=== PATIENT | female | born 1950 | race Caucasian/White ===

== ENCOUNTER 2016-10-07 09:45 | Outpatient (CLI) | payer MEDICARE, OTHER | END 2016-10-07 09:46 | disposition home or self-care (01) | DX: Z12.31 Encounter for screening mammogram for malignant neoplasm of breast (principal) ==

== ENCOUNTER 2017-01-06 08:00 | Outpatient (CLI) | payer MEDICARE, OTHER ==
[2017-01-06 21:03] LABS: CREATININE 0.8 mg/dL (0.4-1.0)
== END 2017-01-06 08:01 | disposition home or self-care (01) ==
LOC: LAB.WCP 08:00
PROVIDERS: ATTEND Orthopaedic Surgery
DX: Z01.812 Encounter for preprocedural laboratory examination (principal)
CPT/HCPCS: 36415; 82565; 84520

== ENCOUNTER 2017-02-04 12:22 | Outpatient (CLI) | payer MEDICARE, OTHER ==
[2017-02-04 12:45] LABS: BASOPHILS % (AUTO) 0.9 %; EOSINOPHILS # (AUTO) 0.2 10^3/uL (0.0-0.7); EOSINOPHILS % (AUTO) 4.8 %; HCT - HEMATOCRIT 34.6 % (37.0-47.0); HGB - HEMOGLOBIN 11.6 g/dL (12.0-16.0); LYMPHOCYTES # (AUTO) 1.6 10^3/uL (1.5-3.5); LYMPHOCYTES % (AUTO) 40.3 %; MEAN CORPUSCULAR HEMOGLOBIN 31.7 pg (27.0-31.0); MEAN CORPUSCULAR HGB CONC 33.6 g/dL (32.0-36.0); MEAN CORPUSCULAR VOLUME 94.1 fL (81.0-99.0); MEAN PLATELET VOLUME 8.2 fL (7.9-10.8); MONOCYTES # (AUTO) 0.4 10^3/uL (0.0-1.0); MONOCYTES % (AUTO) 9.5 %; NEUTROPHILS # (AUTO) 1.7 10^3/uL (1.5-6.6); NEUTROPHILS % (AUTO) 44.5 %; NUCLEATED RED BLOOD CELLS AUTO 0.1 /100WBC; RED BLOOD COUNT 3.67 10^6/uL (4.20-5.40); RED CELL DISTRIBUTION WIDTH 13.9 % (12.0-15.0); UNCORRECTED WHITE BLOOD COUNT 3.9 x10^3/uL; WHITE BLOOD COUNT 3.9 x10^3/uL (4.8-10.8)
[2017-02-04 13:08] LABS: ALBUMIN/GLOBULIN RATIO 1.9 (1.0-2.2); BILIRUBIN,TOTAL 0.8 mg/dL (0.2-1.0); BUN - BLOOD UREA NITROGEN 13 mg/dL (6-20); CALCIUM 9.2 mg/dL (8.5-10.3); CARBON DIOXIDE - CO2 26 mmol/L (21-32); CHLORIDE 105 mmol/L (101-111); CREATININE 0.8 mg/dL (0.4-1.0); GFR - MDRD 72 (>89); GLUCOSE 92 mg/dL (70-100); POTASSIUM 3.6 mmol/L (3.5-5.0); SODIUM 139 mmol/L (135-145); TOTAL PROTEIN 6.7 g/dL (6.7-8.2)
== END 2017-02-04 12:23 | disposition home or self-care (01) ==
LOC: LAB 12:22
PROVIDERS: ATTEND Family Medicine
DX: I10 Essential (primary) hypertension (principal); R41.3 Other amnesia; F32.9 Major depressive disorder, single episode, unspecified; R35.0 Frequency of micturition
CPT/HCPCS: 36415; 80053; 84443; 85025

== ENCOUNTER 2017-02-26 11:25 | Outpatient (CLI) | payer MEDICARE, OTHER | END 2017-02-26 11:26 | disposition home or self-care (01) | LOC: LAB.WCP 11:25 | PROVIDERS: ATTEND Family Medicine | DX: Z11.59 Encounter for screening for other viral diseases (principal) | CPT/HCPCS: 36415; 86803 ==

== ENCOUNTER 2017-08-12 08:52 | Outpatient (CLI) | payer MEDICARE, OTHER ==
[2017-08-12] MEDS ORDERED: ALBUTEROL NEB 2.5 MG/3 ML INH ONE (11:00)
== END 2017-08-12 08:53 | disposition home or self-care (01) ==
LOC: RT 08:52
PROVIDERS: ATTEND Family Medicine
DX: J43.9 Emphysema, unspecified (principal)
CPT/HCPCS: 94060; 94729; J7613; 94664

== ENCOUNTER 2017-10-30 07:01 | Outpatient (CLI) | payer MEDICARE, OTHER ==
--- NOTE | 2017-11-04 13:18 | Mammography Report ---
DIGITAL SCREENING MAMMOGRAM: 10/30/2017 CLINICAL INDICATION: A 67-year-old for screening. COMPARISON: 09/2016, 09/2015, 07/2014, 01/2011. TECHNIQUE: Routine CC and MLO projections were obtained of the breasts. FINDINGS: The breasts again demonstrate scattered fibroglandular densities bilaterally. Coarse and punctate, typically benign calcifications are present. No suspicious masses, clustered microcalcifications, or regions of architectural distortion are identified. IMPRESSION: BENIGN FINDINGS. RECOMMENDATION: Routine annual screening unless otherwise clinically indicated. BI-RADS CATEGORY 2 - BENIGN FINDINGS. STANDARD QUALIFYING STATEMENTS: 1. This examination was reviewed with the aid of Computer-Aided Detection (CAD). 2. A negative or benign imaging report should not delay biopsy if clinically suspicious findings are present. Consider surgical consultation if warranted. More than 5% of cancers are not identified by imaging. 3. Dense breasts may obscure an underlying neoplasm. TD: 11/04/2017 12:55
== END 2017-10-30 07:02 | disposition home or self-care (01) ==
LOC: DI 07:01
PROVIDERS: ATTEND Family Medicine
DX: Z12.31 Encounter for screening mammogram for malignant neoplasm of breast (principal)
CPT/HCPCS: 77067

== ENCOUNTER 2018-08-07 10:57 | Outpatient (CLI) | payer MEDICARE, OTHER ==
[2018-08-07 19:13] LABS: BASOPHILS % (AUTO) 0.9 %; EOSINOPHILS # (AUTO) 0.1 10^3/uL (0.0-0.7); EOSINOPHILS % (AUTO) 3.2 %; HGB - HEMOGLOBIN 13.5 g/dL (12.0-16.0); LYMPHOCYTES # (AUTO) 1.1 10^3/uL (1.5-3.5); LYMPHOCYTES % (AUTO) 25.2 %; MEAN CORPUSCULAR HEMOGLOBIN 31.4 pg (27.0-31.0); MEAN CORPUSCULAR HGB CONC 32.6 g/dL (32.0-36.0); MEAN CORPUSCULAR VOLUME 96.3 fL (81.0-99.0); MEAN PLATELET VOLUME 9.6 fL (7.9-10.8); MONOCYTES # (AUTO) 0.4 10^3/uL (0.0-1.0); MONOCYTES % (AUTO) 8.6 %; NEUTROPHILS # (AUTO) 2.7 10^3/uL (1.5-6.6); NEUTROPHILS % (AUTO) 62.1 %; PLT - PLATELET COUNT 178 10^3/uL (130-450); RED BLOOD COUNT 4.29 10^6/uL (4.20-5.40); RED CELL DISTRIBUTION WIDTH 13.7 % (12.0-15.0); WHITE BLOOD COUNT 4.3 x10^3/uL (4.8-10.8)
[2018-08-07 20:03] LABS: ALBUMIN 4.4 g/dL (3.2-5.5); ALBUMIN/GLOBULIN RATIO 1.5 (1.0-2.2); ALKALINE PHOSPHATASE 49 IU/L (42-121); ALT ALANINE AMINOTRANSFERASE 22 IU/L (10-60); AST ASPARTATE AMINOTRANSFERASE 30 IU/L (10-42); BILIRUBIN,TOTAL 0.7 mg/dL (0.2-1.0); BUN - BLOOD UREA NITROGEN 25 mg/dL (6-20); CALCIUM 9.4 mg/dL (8.5-10.3); CARBON DIOXIDE - CO2 27 mmol/L (21-32); CHLORIDE 98 mmol/L (101-111); CHOL/HDL RATIO 2.5 (<4.4); CHOLESTEROL 161 mg/dL; CREATININE 0.8 mg/dL (0.4-1.0); GFR - MDRD 71 (>89); GLUCOSE 89 mg/dL (70-100); HDL CHOLESTEROL 65 mg/dL; SODIUM 140 mmol/L (135-145); TOTAL PROTEIN 7.3 g/dL (6.7-8.2)
[2018-08-07 20:46] LABS: LDL CHOLESTEROL,DIRECT 96 mg/dL; LDLD/HDL RATIO 1.5 (<4.4)
== END 2018-08-07 10:58 | disposition home or self-care (01) ==
LOC: LAB.WCP 10:57
PROVIDERS: ATTEND Physician Assistant
DX: I10 Essential (primary) hypertension (principal); Z13.220 Encounter for screening for lipoid disorders
CPT/HCPCS: 36415; 80053; 80061; 83721; 85025

== ENCOUNTER 2018-11-05 11:27 | Outpatient (CLI) | payer MEDICARE, OTHER ==
--- NOTE | 2018-11-05 12:37 | Mammography Report ---
Reason: SCREENING MAMMO Procedure Date: 11/05/2018 Accession Number: [id number] / [id number] Procedure: YAAKOV - Screening Mammo w/Michael CPT Code: FULL RESULT: EXAM: Screening Mammo w/Michael DATE: 11/05/2018 12:03 PM CLINICAL HISTORY: Routine screening. No reported personal or family history of breast cancer. TECHNIQUE: (B) - Bilateral CC and MLO views were obtained. COMPARISON: 10/30/2017 through 10/10/2015 PARENCHYMAL PATTERN: (A) - The breasts demonstrate scattered fibroglandular densities bilaterally. FINDINGS: Bilateral breasts: There are no suspicious masses, calcifications, or areas of distortion. IMPRESSION: Negative examination. BI-RADS category 1. RECOMMENDATION: (ANNUAL) - Recommend routine annual screening mammography. BI-RADS CATEGORY: (1) - Negative. STANDARD QUALIFYING STATEMENTS: 1. This examination was not reviewed with the aid of Computer-Aided Detection (CAD). 2. A negative or benign imaging report should not preclude biopsy if clinically suspicious findings are present. 3. Dense breasts may obscure an underlying neoplasm. 4. This examination was reviewed with the aid of 3D breast imaging (tomosynthesis).
== END 2018-11-05 11:28 | disposition home or self-care (01) ==
LOC: DI 11:27
DX: Z12.31 Encounter for screening mammogram for malignant neoplasm of breast (principal)
CPT/HCPCS: 77063; 77067

== ENCOUNTER 2018-12-31 10:19 | Outpatient (CLI) | payer MEDICARE, OTHER ==
--- NOTE | 2019-01-04 08:01 | DEXA Report ---
Reason: POSTMENOPAUSAL STATUS Procedure Date: 12/31/2018 Accession Number: [id number] / [id number] Procedure: DEX - Dexa Spine and/or Hip CPT Code: FULL RESULT: EXAM: Dexa Spine and/or Hip DATE: 12/31/2018 11:15 AM CLINICAL HISTORY: POSTMENOPAUSAL STATUS TECHNIQUE: Dual energy x-ray absorptiometry (DXA) was performed on a [employer] System. Regions measured are the AP Spine, femoral neck, and if needed forearm. COMPARISON: None. In accordance with the International Society for Clinical Densitometry (ISCD) guidelines, data from previous exams may be reanalyzed using current recommendations and techniques. This is done to allow a more accurate basis for comparison with the current study. FINDINGS: The data for the lumbar spine is as follows: BMD (g/cm/cm) T-SCORE Z-SCORE REGION L1 1.318 1.6 2.9 L2 1.400 1.7 3.0 L3 1.501 2.5 3.9 L4 1.765 4.7 6.1 TOTAL 1.539 3.0 4.4 NOTE: All evaluable vertebrae are used for classification The data for the hip is as follows: BMD (g/cm/cm) T-SCORE Z-SCORE REGION Neck 0.889 -1.1 0.4 TOTAL 0.964 -0.3 0.9 NOTE: The femoral neck or total proximal femur, whichever is lowest, is used for classification. IMPRESSION: THE WHO CLASSIFICATION BASED ON THE INTERNATIONAL REFERENCE STANDARD IS OSTEOPENIA. THE FRACTURE RISK IS INCREASED. RECOMMENDATION: Patients with diagnosis of osteoporosis or osteopenia should have regular bone mineral density assessment. For those eligible for Medicare, routine testing is allowed once every 2 years. Testing frequency can be increased for patients who have rapidly progressing disease or for those who are receiving medical therapy to restore bone mass. COMMENT: World Health Organization (WHO) definitions for osteoporosis and osteopenia: NORMAL BMD: T-score at -1.0 or higher, fracture risk is low OSTEOPENIA BMD: T-score between -1.0 and -2.5, fracture risk is increased. OSTEOPOROSIS BMD: T-score at -2.5 or lower, fracture risk is high. National Osteoporosis Foundation recommends: 1. Obtain adequate dietary calcium (at least 1200 mg per day) and vitamin D (400-800 international units per day). 2. Participate, as appropriate, in regular weightbearing and muscle-strengthening exercise. 3. Avoid tobacco use and reduce alcohol and caffeine intake. 4. For more detailed information see the website at www.NOF.org.
== END 2018-12-31 10:20 | disposition home or self-care (01) ==
LOC: DI 10:19
PROVIDERS: ATTEND Family Medicine
DX: M85.89 Other specified disorders of bone density and structure, multiple sites (principal); Z78.0 Asymptomatic menopausal state
CPT/HCPCS: 77080

== ENCOUNTER 2019-04-09 08:00 | Outpatient (CLI) | payer MEDICARE, OTHER ==
[2019-04-09 12:38] LABS: BASOPHILS # (AUTO) 0.1 10^3/uL (0.0-0.1); BASOPHILS % (AUTO) 1.2 %; EOSINOPHILS # (AUTO) 0.1 10^3/uL (0.0-0.7); EOSINOPHILS % (AUTO) 3.2 %; HGB - HEMOGLOBIN 12.8 g/dL (12.0-16.0); LYMPHOCYTES # (AUTO) 1.3 10^3/uL (1.5-3.5); LYMPHOCYTES % (AUTO) 29.3 %; MEAN CORPUSCULAR HEMOGLOBIN 31.7 pg (27.0-31.0); MEAN CORPUSCULAR HGB CONC 32.1 g/dL (32.0-36.0); MEAN CORPUSCULAR VOLUME 98.8 fL (81.0-99.0); MEAN PLATELET VOLUME 10.1 fL (7.9-10.8); MONOCYTES # (AUTO) 0.5 10^3/uL (0.0-1.0); MONOCYTES % (AUTO) 10.4 %; NEUTROPHILS # (AUTO) 2.4 10^3/uL (1.5-6.6); NEUTROPHILS % (AUTO) 55.7 %; PLT - PLATELET COUNT 214 10^3/uL (130-450); RED BLOOD COUNT 4.04 10^6/uL (4.20-5.40); RED CELL DISTRIBUTION WIDTH 13.5 % (12.0-15.0); WHITE BLOOD COUNT 4.3 x10^3/uL (4.8-10.8)
[2019-04-09 12:59] LABS: CRP - C-REACTIVE PROTEIN < 1.0 mg/dL (0-1.0)
[2019-04-09 13:17] LABS: RHEUMATOID FACTOR NEGATIVE (Negative)
[2019-04-13 21:45] LABS: ANA SCREEN NEGATIVE (NEGATIVE)
== END 2019-04-09 23:59 | disposition home or self-care (01) ==
LOC: LAB.WCP 08:00
PROVIDERS: ATTEND Orthopaedic Surgery
DX: D17.22 Benign lipomatous neoplasm of skin and subcutaneous tissue of left arm (principal); M25.532 Pain in left wrist
CPT/HCPCS: 36415; 84550; 85025; 85651; 86038; 86140; 86430

== ENCOUNTER 2019-08-06 07:53 | Outpatient (CLI) | payer MEDICARE, OTHER ==
--- NOTE | 2019-08-06 10:30 | MRI Report ---
Reason: LOW BACK PAIN Procedure Date: 08/06/2019 Accession Number: [id number] / [id number] Procedure: MRI - Lumbar Spine W/O CPT Code: Final Report FULL RESULT: EXAM: MRI LUMBAR SPINE WITHOUT CONTRAST EXAM DATE: 08/06/2019 08:40 AM. CLINICAL HISTORY: Low back pain. COMPARISON: None. TECHNIQUE: Multiplanar, multisequence T1-weighted and fluid-sensitive sequences of the lumbar spine from T12 to S1 without contrast. Other: None. FINDINGS: Spinal Canal: The conus terminates at L2. The conus medullaris and cauda equina are unremarkable. Alignment: Multiple subluxations. Bone Marrow: Five esl-daw-yreagml lumbar vertebral bodies are assumed. Diffuse marrow signal heterogeneity. Mild Modic type I degenerative endplate signal changes posteriorly at L4-L5. Lumbar vertebral body heights are grossly maintained. No evidence for a displaced pars defect. Disk Levels/Facets: T12-L1: Mild to moderate facet arthropathy. Negligible disk degeneration. No disk herniation or stenosis. L1-L2: 2 mm degenerative L1 on L2 retrolisthesis. Mild disk degeneration. Circumferential bulge and marginal spurring. Additional shallow right intraforaminal and far lateral disk protrusion with osteophyte. Mild facet arthropathy. Patent central canal and left foramen. Mild right foraminal stenosis. L2-L3: 1 mm L2 on L3 retrolisthesis. Minimal disk degeneration. Mild to moderate facet arthropathy. Shallow disk bulge but no focal extrusion or significant stenosis. L3-L4: Moderate disk degeneration. Vertebral body marginal spurring. Circumferential disk bulge. Shallow additional asymmetric right intraforaminal and far lateral disk protrusion. Moderate facet arthropathy. Minimal central canal stenosis. Mild left and mild to moderate right foraminal stenosis. L4-L5: 4 mm degenerative anterolisthesis of L4 on L5. Moderate disk degeneration. Moderate to severe facet arthropathy. Circumferential disk bulge. Marginal spurring. Mild stenosis of the central canal and left neural foramen. Foraminal stenosis on the right is mild to moderate. L5-S1: Degenerative anterolisthesis of L5 on S1 by 12 mm creating a grade 2 degenerative spondylolisthesis. Moderate to severe disk degeneration and facet arthropathy. Mild right and moderate to severe left foraminal stenosis. Mild central stenosis. Prominent deformity and narrowing also of the left lateral recess. Musculature: Mild to moderate diffuse fatty atrophy. Other: None. IMPRESSION: 1. Prominent chronic-appearing multilevel degenerative lumbar spinal spondylosis with degenerative subluxations throughout the lumbar spine as detailed above, most severe at L4-L5 and L5-S1 levels. 2. Moderate to severe foraminal stenosis on the left at L5-S1. 3. Prominent deformity and narrowing of the left lateral recess at L5-S1 from malalignment and posterior element hypertrophic degenerative changes. 4. No critical central canal stenosis in the lumbar spine. 5. Localized Modic type I degenerative endplate signal changes posteriorly at L4-L5. Comment: The following findings are so common in adults without low back pain that while we report their presence, they must be interpreted with caution and in the context of the clinical situation. (Reference Phillipvik et al, Spine 2001) Prevalence of findings in patients without low back pain: Disk degeneration (any evidence): 92% Disk desiccation/T2 signal loss: 83% Disk height loss: 56% Disk bulge: 64% Disk protrusion: 32% Annular tear/high intensity zone: 38% RADIA
== END 2019-08-06 07:54 | disposition home or self-care (01) ==
LOC: DI 07:53
PROVIDERS: ATTEND Physical Medicine & Rehabilitation
DX: M51.26 Other intervertebral disc displacement, lumbar region (principal); M51.36 Other intervertebral disc degeneration, lumbar region; M48.061 Spinal stenosis, lumbar region without neurogenic claudication; M47.816 Spondylosis without myelopathy or radiculopathy, lumbar region; M43.16 Spondylolisthesis, lumbar region; M43.17 Spondylolisthesis, lumbosacral region; M51.37 Other intervertebral disc degeneration, lumbosacral region; M48.07 Spinal stenosis, lumbosacral region
CPT/HCPCS: 72148

== ENCOUNTER 2019-11-14 07:37 | Outpatient (CLI) | payer MEDICARE, OTHER | END 2019-11-14 07:38 | disposition critical access hospital (66) | LOC: EMS 07:37 | PROVIDERS: ATTEND Surgery | DX: R52 Pain, unspecified (principal); R11.2 Nausea with vomiting, unspecified; R42 Dizziness and giddiness; R06.02 Shortness of breath | CPT/HCPCS: A0425; A0427 ==

== ENCOUNTER 2019-11-14 07:50 | Emergency (ER) | payer MEDICARE, OTHER ==
--- NOTE | 2019-11-14 07:54 | ED Physician Documentation ---
PD HPI SKIN - Stated complaint Stated Complaint: SHINGLES - History obtained from History obtained from: Patient PD PAST MEDICAL HISTORY - Past Medical History Cardiovascular: None Respiratory: None Endocrine/Autoimmune: None GI: None : None HEENT: Dental implants Psych: Depression Musculoskeletal: Osteoarthritis Derm: None - Past Surgical History Ortho: Hip replacement HEENT: Cataracts - Present Medications Home Medications: Ambulatory Orders Medication Instructions Recorded Confirmed Ascorbic Acid [Vitamin C] 500 mg PO DAILY 10/04/15 11/27/15 Biotin 10,000 mcg PO DAILY 10/04/15 11/27/15 Cholecalciferol (Vitamin D3) 1,000 unit PO DAILY 10/04/15 11/27/15 [Vitamin D] Multivitamin [Theragran] 1 each PO DAILY 10/04/15 11/27/15 Vitamin E 1 tab PO DAILY 10/04/15 11/27/15 Aspirin [Aspir-Low] 81 mg PO DAILY 11/24/15 11/27/15 Folic Acid 0.8 mg PO DAILY 11/27/15 11/27/15 Magnesium Oxide [Magnesium] 400 mg PO DAILY 11/27/15 11/27/15 Melatonin [Vitajoy] 2.5 mg PO ACHS 11/27/15 11/27/15 prednisoLONE 1% OPHTH DROPS [Pred 1 drops OPTH BID 11/27/15 11/27/15 Forte 1% Ophth Drops] - Allergies Allergies/Adverse Reactions: Allergies Allergy/AdvReac Type Severity Reaction Status Date / Time acetaminophen [From Percocet] AdvReac Dizziness Verified 11/27/15 08:18 oxycodone HCl * AdvReac Dizziness Verified 11/27/15 08:18 [From Percocet] - Social History Smoking Status: Never smoker Results - Vitals Vitals: Oxygen O2 Source Room air
[2019-11-14] MEDS ORDERED: diphenhydrAMINE INJ 50 MG/ML VIAL IVP STA (08:09)
[2019-11-14] MEDS ORDERED: SODIUM CHLORIDE 0.9% 1,000 ML IV STA (08:09)
[2019-11-14] MEDS ORDERED: ONDANSETRON 4 MG/2 ML VIAL IVP STA (08:09)
[2019-11-14] MEDS ORDERED: FAMOTIDINE 20 MG/2 ML SYRINGE IVP STA (08:10)
[2019-11-14] MEDS ORDERED: NALBUPHINE 10 MG/ML AMP IVP STA ×2 (08:10→11:29)
--- NOTE | 2019-11-14 08:11 | ED Physician Documentation ---
PD HPI NVD - Stated complaint Stated Complaint: SHINGLES - Chief complaint Chief Complaint: General - History obtained from History obtained from: Patient, EMS - History of Present Illness Timing - onset: Last night, Yesterday Timing - duration: Hours (12) Timing - details: Abrupt onset, Still present Associated symptoms: Abdominal pain, Loss of appetite. No: Fever, Chest pain, Hematemesis, Melena Contributing factors: Alcohol use, Other (NSAID use as well - has had shingles pain left lower chest/upper abd for 3 weeks, with prior Rx of antiviral and steroid for 1 week, and now using NSAIDs and tramadol. No improved so has been drinking heavily for 3 weeks as well, to help the pain. Onset vomiting yesterday. Having persistent symptoms and also with shakiness and tremor today too.). No: Sick contact, Bad food Improved by: No: Vomiting Worsened by: Eating Similar symptoms before: Has not had sx before Recently seen: Clinic (for shingles 3 weeks ago, rechecked teleconf a week ago and Rx Tramadol.) Review of Systems Constitutional: denies: Fever, Chills Nose: denies: Rhinorrhea / runny nose, Congestion Throat: denies: Sore throat Cardiac: reports: Chest pain / pressure (locally at shingles area). denies: Palpitations Respiratory: denies: Dyspnea, Cough GI: denies: Nausea, Vomiting, Diarrhea Skin: reports: Rash (for 3 weeks on left chest/abd) Musculoskeletal: denies: Neck pain, Back pain Neurologic: denies: Altered mental status PD PAST MEDICAL HISTORY - Past Medical History Cardiovascular: None Respiratory: None Endocrine/Autoimmune: None GI: None : None HEENT: Dental implants Psych: Depression Musculoskeletal: Osteoarthritis Derm: None - Past Surgical History Ortho: Hip replacement HEENT: Cataracts - Present Medications Home Medications: Ambulatory Orders Medication Instructions Recorded Confirmed Ascorbic Acid [Vitamin C] 500 mg PO DAILY 10/04/15 11/27/15 Biotin 10,000 mcg PO DAILY 10/04/15 11/27/15 Cholecalciferol (Vitamin D3) 1,000 unit PO DAILY 10/04/15 11/27/15 [Vitamin D] Multivitamin [Theragran] 1 each PO DAILY 10/04/15 11/27/15 Vitamin E 1 tab PO DAILY 10/04/15 11/27/15 Aspirin [Aspir-Low] 81 mg PO DAILY 11/24/15 11/27/15 Folic Acid 0.8 mg PO DAILY 11/27/15 11/27/15 Magnesium Oxide [Magnesium] 400 mg PO DAILY 11/27/15 11/27/15 Melatonin [Vitajoy] 2.5 mg PO ACHS 11/27/15 11/27/15 prednisoLONE 1% OPHTH DROPS [Pred 1 drops OPTH BID 11/27/15 11/27/15 Forte 1% Ophth Drops] Famotidine 20 mg PO DAILY #30 tablet 11/14/19 Hydrocodone/Acetaminophen [[place] 1 each PO Q6H PRN #20 tablet 11/14/19 5-325 Tablet] LORazepam [Ativan] 1 mg PO Q6H PRN #25 tablet 11/14/19 Promethazine [Phenergan] 25 mg PO Q6H PRN #20 tab 11/14/19 Valacyclovir HCl [Valacyclovir] 500 mg PO TID #20 tablet 11/14/19 dexAMETHasone [Decadron] 4 mg PO DAILY #5 tablet 11/14/19 - Allergies Allergies/Adverse Reactions: Allergies Allergy/AdvReac Type Severity Reaction Status Date / Time Iodinated Contrast Media Allergy Anaphylaxis Verified 11/14/19 09:09 acetaminophen [From Percocet] AdvReac Dizziness Verified 11/14/19 08:04 oxycodone HCl * AdvReac Dizziness Verified 11/14/19 08:04 [From Percocet] - Social History Smoking Status: Never smoker PD ED PE NORMAL - Vitals Vital signs reviewed: Yes - General General: Alert and oriented X 3, Well developed/nourished - HEENT HEENT: PERRL (nonicteric), Pharynx benign. No: Moist mucous membranes - Neck Neck: Supple, no meningeal sign, No adenopathy - Cardiac Cardiac: RRR, No murmur - Respiratory Respiratory: Clear bilaterally - Abdomen Abdomen: Normal bowel sounds, Soft, Non distended, No organomegaly, Other (some tender epigastric without guarding nor percussion tender. Not diffusely tender. ) - Back Back: No CVA TTP - Derm Derm: Normal color, Warm and dry, Other (partly dried up rash left lower chest around to back in a band c/w shingles without signs of secondary infection. Still some crusting and incompletely dried blistering.) - Extremities Extremities: No tenderness to palpate, Normal ROM s pain, No edema, No calf tenderness / cord - Neuro Neuro: Alert and oriented X 3, No motor deficit, Normal speech Results - Vitals Vitals: Oxygen O2 Source Room air - Labs Labs: Laboratory Tests 11/14/19 11/14/19 11/14/19 08:30 08:30 08:30 WBC 6.4 RBC 3.90 L Hgb 12.2 Hct 35.6 L MCV 91.3 MCH 31.3 H MCHC 34.3 RDW 14.2 Plt Count 168 MPV 9.1 Neut # (Auto) 5.5 Lymph # (Auto) 0.6 L [place] # (Auto) 0.3 Eos # (Auto) 0.0 Baso # (Auto) 0.0 Absolute Nucleated RBC 0.00 Nucleated RBC % 0.0 Sodium 131 L Potassium 3.8 Chloride 93 L Carbon Dioxide 24 Anion Gap 14.0 H BUN 19 Creatinine 0.6 Estimated GFR (MDRD) 99 Glucose 187 H Calcium 9.1 Magnesium 1.7 Total Bilirubin 1.0 AST 32 ALT 23 Alkaline Phosphatase 46 Troponin I High Sens Total Protein 7.7 Albumin 4.5 Globulin 3.2 Albumin/Globulin Ratio 1.4 Lipase 34 Ethyl Alcohol < 5.0 11/14/19 08:30 WBC RBC Hgb Hct MCV MCH MCHC RDW Plt Count MPV Neut # (Auto) Lymph # (Auto) [place] # (Auto) Eos # (Auto) Baso # (Auto) Absolute Nucleated RBC Nucleated RBC % Sodium Potassium Chloride Carbon Dioxide Anion Gap BUN Creatinine Estimated GFR (MDRD) Glucose Calcium Magnesium Total Bilirubin AST ALT Alkaline Phosphatase Troponin I High Sens 4.4 Total Protein Albumin Globulin Albumin/Globulin Ratio Lipase Ethyl Alcohol PD MEDICAL DECISION MAKING - ED course Complexity details: considered differential (likely alcoholic and NSAID gastritis with N/V and then some secondary alcohol withdrawal. Feeling better with meds here. Can change pain meds so she is not drinking alcohol for her pain. ), d/w patient Departure - Departure Disposition: 01 Home, Self Care Clinical Impression: Acute pain associated with herpes zoster Nausea and vomiting Qualifiers: Vomiting type: unspecified Vomiting Intractability: non-intractable Qualified Code(s): R11.2 - Nausea with vomiting, unspecified Alcohol withdrawal Qualifiers: Complication of substance-induced condition: uncomplicated Qualified Code(s): F10.230 - Alcohol dependence with withdrawal, uncomplicated Condition: Stable Record reviewed to determine appropriate education?: Yes Instructions: ED Nausea Vomiting, ED Shingles Follow-Up: LUCIA WATKINS MD [Primary Care Provider] - Prescriptions: dexAMETHasone [Decadron] 4 mg PO DAILY #5 tablet Famotidine 20 mg PO DAILY #30 tablet Hydrocodone/Acetaminophen [[place] 5-325 Tablet] 1 each PO Q6H PRN #20 tablet PRN Reason: Pain LORazepam [Ativan] 1 mg PO Q6H PRN #25 tablet PRN Reason: Alcohol Withdrawal Promethazine [Phenergan] 25 mg PO Q6H PRN #20 tab PRN Reason: Nausea / Vomiting Valacyclovir HCl [Valacyclovir] 500 mg PO TID #20 tablet Comments: I would suggest re-dosing a week of the antiviral as well as a steroid to reduce the shingles inflammation and pain. Avoid alcohol. I think some of your symptoms right now of the shakiness and some nausea related to some alcohol withdrawal. Do not use that for the pain but instead use Tylenol 500 or 650 mg 3 times a day. To that add [place] every 6 hours if needed for pain. Some of your nausea and vomiting also are likely from a stomach irritation from the anti-inflammatories ibuprofen and alcohol. Use famotidine acid reducing medicine daily for a couple of weeks. Lorazepam initially every 6 hours or so as needed for shakiness from a withdrawal. Decrease the dosing of it over several days to a week as you are able to tolerate. Follow-up with your primary care this coming week, call Friday for an appoint ment. Return to the ER sooner if worse. Discharge Date/Time: 11/14/19 12:58
[2019-11-14 08:32] LABS: BASOPHILS % (AUTO) 0.5 %; HGB - HEMOGLOBIN 12.2 g/dL (12.0-16.0); LYMPHOCYTES # (AUTO) 0.6 10^3/uL (1.5-3.5); LYMPHOCYTES % (AUTO) 9.7 %; MEAN CORPUSCULAR HEMOGLOBIN 31.3 pg (27.0-31.0); MEAN CORPUSCULAR HGB CONC 34.3 g/dL (32.0-36.0); MEAN CORPUSCULAR VOLUME 91.3 fL (81.0-99.0); MEAN PLATELET VOLUME 9.1 fL (7.9-10.8); MONOCYTES # (AUTO) 0.3 10^3/uL (0.0-1.0); MONOCYTES % (AUTO) 4.4 %; NEUTROPHILS # (AUTO) 5.5 10^3/uL (1.5-6.6); NEUTROPHILS % (AUTO) 85.1 %; PLT - PLATELET COUNT 168 10^3/uL (130-450); RED CELL DISTRIBUTION WIDTH 14.2 % (12.0-15.0); WHITE BLOOD COUNT 6.4 x10^3/uL (4.8-10.8)
[2019-11-14 08:46] LABS: ALBUMIN 4.5 g/dL (3.2-5.5); ALBUMIN/GLOBULIN RATIO 1.4 (1.0-2.2); CALCIUM 9.1 mg/dL (8.5-10.3); CREATININE 0.6 mg/dL (0.4-1.0); MAGNESIUM 1.7 mg/dL (1.7-2.8); TOTAL PROTEIN 7.7 g/dL (6.7-8.2)
[2019-11-14] MEDS ORDERED: MAG HYDROX/AL HYDROX/SIMETH 30 ML UDC PO STA (08:51)
[2019-11-14] MEDS ORDERED: LORazepam 2 MG/ML VIAL IVP STA ×2 (08:51→11:29)
[2019-11-14] MEDS ORDERED: LACTATED RINGERS 1,000 ML IV STA (09:29)
[2019-11-14] MEDS ORDERED: ACYCLOVIR 200 MG CAPSULE PO STA (10:49)
[2019-11-14] MEDS ORDERED: DEXAMETHASONE 10 MG/ML VIAL IVP STA (10:49)
[2019-11-14 11:02] VITALS: BP 172/86
== END 2019-11-14 12:58 | disposition home or self-care (01) ==
LOC: EDUNIT# → ED 07:50
DX: B02.9 Zoster without complications (principal); R11.2 Nausea with vomiting, unspecified; F10.230 Alcohol dependence with withdrawal, uncomplicated; I45.81 Long QT syndrome; Z79.82 Long term (current) use of aspirin
CPT/HCPCS: 36415; 80053; 83690; 83735; 84484; 85025; 93005; 96361; 96374; 96375; 96376; 99284; 99285; A9270; J1200; J2060; J2300; J7120; 80320

== ENCOUNTER 2019-12-21 10:12 | Outpatient (CLI) | payer MEDICARE, OTHER ==
[2019-12-21 11:58] LABS: BASOPHILS % (AUTO) 0.6 %; EOSINOPHILS # (AUTO) 0.3 10^3/uL (0.0-0.7); EOSINOPHILS % (AUTO) 5.2 %; HGB - HEMOGLOBIN 11.7 g/dL (12.0-16.0); LYMPHOCYTES # (AUTO) 1.6 10^3/uL (1.5-3.5); LYMPHOCYTES % (AUTO) 25.3 %; MEAN CORPUSCULAR HEMOGLOBIN 29.9 pg (27.0-31.0); MEAN CORPUSCULAR VOLUME 96.4 fL (81.0-99.0); MEAN PLATELET VOLUME 11.1 fL (7.9-10.8); MONOCYTES # (AUTO) 0.6 10^3/uL (0.0-1.0); MONOCYTES % (AUTO) 9.1 %; NEUTROPHILS # (AUTO) 3.8 10^3/uL (1.5-6.6); NEUTROPHILS % (AUTO) 59.5 %; PLT - PLATELET COUNT 234 10^3/uL (130-450); RED BLOOD COUNT 3.91 10^6/uL (4.20-5.40); RED CELL DISTRIBUTION WIDTH 14.9 % (12.0-15.0); WHITE BLOOD COUNT 6.4 x10^3/uL (4.8-10.8)
[2019-12-21 12:18] LABS: ALBUMIN 4.2 g/dL (3.2-5.5); ALBUMIN/GLOBULIN RATIO 1.8 (1.0-2.2); BILIRUBIN,TOTAL 0.5 mg/dL (0.2-1.0); CREATININE 0.8 mg/dL (0.4-1.0); TOTAL PROTEIN 6.5 g/dL (6.7-8.2)
== END 2019-12-21 23:59 | disposition home or self-care (01) ==
LOC: LAB.WCP 10:12
PROVIDERS: ATTEND Nurse Practitioner
DX: R10.12 Left upper quadrant pain (principal); K29.70 Gastritis, unspecified, without bleeding
CPT/HCPCS: 36415; 80053; 85025

== ENCOUNTER 2019-12-28 09:47 | Outpatient (CLI) | payer MEDICARE, OTHER ==
--- NOTE | 2019-12-28 12:15 | CT Report ---
PROCEDURE: Abdomen/Pelvis WO INDICATIONS: ABD PAIN TECHNIQUE: Noncontrast 5 mm thick sections acquired from the diaphragms to the symphysis. 5 mm coronal and sagi ttal reformats were then performed. For radiation dose reduction, the following was used: automated exposure control, adjustment of mA and/or kV according to patient size. COMPARISON: None. FINDINGS: Image quality: Excellent. ABDOMEN: Lung bases: Lung bases are clear. Heart size is normal. Solid organs: Liver and spleen are normal in size. Gallbladder is normal in size. Pancreas is norm al in contours. No adrenal nodules. Kidneys are normal in size, without hydronephrosis or nephrolit hiasis. Peritoneum and bowel: Unenhanced bowel loops demonstrate normal wall thickness and caliber. No free fluid or air. Nodes and vessels: No retroperitoneal or mesenteric adenopathy by size criteria. Aorta and inferior vena cava are normal in caliber. A few scattered atherosclerotic calcifications are seen in the abd ominal aorta. Miscellaneous: No ventral hernias. PELVIS: Genitourinary: Bladder wall thickness is normal. Miscellaneous: No inguinal hernias or adenopathy. Bones: No suspicious bony lesions. No vertebral body compression fractures. Multilevel degenerativ e disc disease and facet hypertrophy are seen in the lower lumbar spine. There is grade 1 anterolisth esis of L4 on L5 and L5 on S1 secondary to facet hypertrophy. Mild degenerative changes are seen in t he pubic symphysis. Postsurgical changes are seen from a left total hip arthroplasty with associated metallic streak artifact that mildly compromises evaluation of the adjacent structures. IMPRESSION: 1. No acute abnormality is identified in the abdomen or pelvis. 2. Postsurgical changes from a left total hip arthroplasty. 3. Moderate degenerative changes in the included lower lumbar spine including grade 1 anterolisthesi s of L4 on L5 and grade 1 anterolisthesis of L5 on S1. Reviewed by: Morro Beal MD on 12/28/2019 12:13 PM PDT Approved by: Morro Beal MD on 12/28/2019 12:13 PM PDT Station ID: [id number]
== END 2019-12-28 09:48 | disposition home or self-care (01) ==
LOC: DI 09:47
PROVIDERS: ATTEND Nurse Practitioner
DX: R10.12 Left upper quadrant pain (principal); M51.36 Other intervertebral disc degeneration, lumbar region; Z96.642 Presence of left artificial hip joint
CPT/HCPCS: 74176

== ENCOUNTER 2020-10-30 08:21 | Outpatient (CLI) | payer MEDICARE, OTHER ==
--- NOTE | 2020-10-30 12:33 | CT Report ---
PROCEDURE: CHEST WO INDICATIONS: LT SIDE RIB PAIN TECHNIQUE: Noncontrast 5 mm thick sections acquired from the pulmonary apices to the posterior costophrenic angl es. 7 mm thick coronal and sagittal MIP reformats were then acquired. For radiation dose reduction, the following was used: automated exposure control, adjustment of mA and/or kV according to patient size. COMPARISON: Prior CT abdomen/pelvis 12/28/2019 FINDINGS: Image quality: Excellent. Lungs and pleura: No acute air space opacities. No pleural effusions or pneumothorax. Central and peripheral airways are patent and normal in caliber. Mediastinum: Heart size is normal. No pericardial effusion. No mediastinal adenopathy by size crit eria. Thoracic aorta and central pulmonary arteries are normal in size. Esophagus is normal in uriel anette. No hiatal hernia. Bones and chest wall: No suspicious bony lesions. No vertebral body compression fractures. No axil janes or supraclavicular adenopathy by size criteria. The thyroid is normal in size. Abdomen: Visualized upper abdominal solid organs and bowel loops appear normal in the absence of con trast. IMPRESSION: No trauma found, no evidence of infection or neoplasm. Depending on the clinical status follow-up by nuclear medicine bone scan may be warranted if unusual symptomatology persists. Reviewed by: Juan Robles MD on 10/30/2020 12:32 PM PDT Approved by: Juan Robles MD on 10/30/2020 12:32 PM PDT Station ID: [id number]
== END 2020-10-30 08:22 | disposition home or self-care (01) ==
LOC: DI 08:21
PROVIDERS: ATTEND Family Medicine
DX: R07.81 Pleurodynia (principal)

== ENCOUNTER 2021-02-05 09:43 | Outpatient (CLI) | payer MEDICARE, OTHER ==
--- NOTE | 2021-02-06 14:34 | Mammography Report ---
BILATERAL DIGITAL SCREENING MAMMOGRAM 3D/2D: 02/05/2021 CLINICAL: Routine screening. Comparison is made to exams dated: 11/05/2018 mammogram, 10/30/2017 mammogram, 10/07/2016 mammogram, mammogram, 10/10/2015 mammogram, and 08/05/2014 mammogram - Located within [facility]. Ther e are scattered fibroglandular elements in both breasts. There are benign vascular calcifications in both breasts. No significant masses, calcifications, or other findings are seen in either breast. There has been no significant interval change. IMPRESSION: BENIGN There is no mammographic evidence of malignancy. A 1 year screening mammogram is recommended. This exam was interpreted at Station ID: [id number]. NOTE: For mammograms, a report in lay terms will be sent to the patient. Approximately 15% of breast malignancies will not be visualized mammographically. In the management of a palpable breast mass, a negative mammogram must not discourage biopsy of a clinically suspicious lesion. Electronically Signed By: Bennett perez/penlong:02/05/2021 11:47:21 ACR BI-RADS Category 2: Benign Finding(s) 3342F PARENCHYMAL PATTERN: (A) - The breast(s) demonstrate(s) scattered fibroglandular densities. BI-RADS CATEGORY: (2) - 2 RECOMMENDATION: (ANNUAL) - Recommend routine annual screening mammography. [id number] 1 year screening LATERALITY: (B)
== END 2021-02-05 09:44 | disposition home or self-care (01) ==
LOC: DI 09:43
DX: Z12.31 Encounter for screening mammogram for malignant neoplasm of breast (principal)

== ENCOUNTER 2021-05-14 09:06 | Outpatient (CLI) | payer MEDICARE, OTHER ==
[2021-05-14 12:44] LABS: BASOPHILS # (AUTO) 0.1 10^3/uL (0.0-0.1); EOSINOPHILS # (AUTO) 0.3 10^3/uL (0.0-0.7); EOSINOPHILS % (AUTO) 6.3 %; HCT - HEMATOCRIT 39.8 % (37.0-47.0); HGB - HEMOGLOBIN 12.6 g/dL (12.0-16.0); LYMPHOCYTES # (AUTO) 1.3 10^3/uL (1.5-3.5); LYMPHOCYTES % (AUTO) 26.8 %; MEAN CORPUSCULAR HEMOGLOBIN 30.7 pg (27.0-31.0); MEAN CORPUSCULAR HGB CONC 31.7 g/dL (32.0-36.0); MEAN CORPUSCULAR VOLUME 97.1 fL (81.0-99.0); MEAN PLATELET VOLUME 11.1 fL (7.9-10.8); MONOCYTES # (AUTO) 0.5 10^3/uL (0.0-1.0); MONOCYTES % (AUTO) 9.1 %; NEUTROPHILS # (AUTO) 2.8 10^3/uL (1.5-6.6); NEUTROPHILS % (AUTO) 56.6 %; PLT - PLATELET COUNT 212 10^3/uL (130-450); RED CELL DISTRIBUTION WIDTH 13.2 % (12.0-15.0); WHITE BLOOD COUNT 4.9 x10^3/uL (4.8-10.8)
[2021-05-14 13:17] LABS: ALBUMIN 4.5 g/dL (3.2-5.5); ALBUMIN/GLOBULIN RATIO 1.7 (1.0-2.2); CALCIUM 9.6 mg/dL (8.5-10.3); CREATININE 0.9 mg/dL (0.4-1.0); POTASSIUM 4.2 mmol/L (3.5-5.0); TOTAL PROTEIN 7.1 g/dL (6.7-8.2)
[2021-05-14 13:23] LABS: FERRITIN 75.5 ng/mL (11.0-306.8)
== END 2021-05-14 23:59 | disposition home or self-care (01) ==
LOC: LAB.WCP 09:06
PROVIDERS: ATTEND Family Medicine
DX: D64.9 Anemia, unspecified (principal)
CPT/HCPCS: 36415; 80053; 82607; 82728; 83540; 84466; 85025

== ENCOUNTER 2021-11-14 16:30 | Outpatient (CLI) | payer MEDICARE, OTHER ==
--- NOTE | 2021-11-14 16:55 | XRAY Report ---
PROCEDURE: Shoulder 2 View LT INDICATIONS: SHOULDER PAIN, LEFT TECHNIQUE: 2 views of the shoulder were acquired. COMPARISON: None. FINDINGS: Bones: No fractures or dislocations. No suspicious bony lesions. Visualized ribs appear intact. P eriarticular osteophyte formation at the acromial clavicular and glenohumeral joints. Soft tissues: No suspicious soft tissue calcifications. IMPRESSION: Osteoarthritis. No acute fracture. No osseous lesion. If symptoms and/or clinical suspic ion for pathology continue, further assessment with repeat plain films, or advanced imaging (e.g., CT , MRI, or bone scan) is recommended for further assessment. Reviewed by: Rishi Dougherty MD on 11/14/2021 4:54 PM PDT Approved by: Rishi Dougherty MD on 11/14/2021 4:54 PM PDT Station ID: [id number]
== END 2021-11-14 16:31 | disposition home or self-care (01) ==
LOC: DI 16:30
PROVIDERS: ATTEND Family Medicine
DX: M19.012 Primary osteoarthritis, left shoulder (principal)

== ENCOUNTER 2022-06-28 13:15 | Outpatient (CLI) | payer MEDICARE, OTHER ==
[2022-06-28 13:29] LABS: BASOPHILS % (AUTO) 0.8 %; EOSINOPHILS # (AUTO) 0.2 10^3/uL (0.0-0.7); EOSINOPHILS % (AUTO) 3.6 %; HCT - HEMATOCRIT 38.5 % (37.0-47.0); HGB - HEMOGLOBIN 12.5 g/dL (12.0-16.0); LYMPHOCYTES # (AUTO) 1.7 10^3/uL (1.5-3.5); LYMPHOCYTES % (AUTO) 31.9 %; MEAN CORPUSCULAR HEMOGLOBIN 30.2 pg (27.0-31.0); MEAN CORPUSCULAR HGB CONC 32.5 g/dL (32.0-36.0); MEAN PLATELET VOLUME 9.5 fL (7.9-10.8); MONOCYTES # (AUTO) 0.5 10^3/uL (0.0-1.0); MONOCYTES % (AUTO) 8.6 %; NEUTROPHILS # (AUTO) 2.9 10^3/uL (1.5-6.6); NEUTROPHILS % (AUTO) 54.9 %; PLT - PLATELET COUNT 177 10^3/uL (130-450); RED BLOOD COUNT 4.14 10^6/uL (4.20-5.40); RED CELL DISTRIBUTION WIDTH 13.2 % (12.0-15.0); WHITE BLOOD COUNT 5.3 x10^3/uL (4.8-10.8)
[2022-06-28 13:35] LABS: BILIRUBIN,URINE NEGATIVE (NEGATIVE); GLUCOSE, URINE (UA) NEGATIVE (NEGATIVE); KETONES,URINE (UA) NEGATIVE (NEGATIVE); LEUKOCYTE ESTERASE, URINE NEGATIVE (NEGATIVE); NITRITE,URINE NEGATIVE (NEGATIVE); OCCULT BLOOD,URINE NEGATIVE (NEGATIVE); PROTEIN,URINE NEGATIVE (NEGATIVE); UROBILINOGEN,URINE 0.2 (NORMAL) E.U./dL (NORMAL)
[2022-06-28 13:43] LABS: ALBUMIN 4.5 g/dL (3.2-5.5); ALBUMIN/GLOBULIN RATIO 1.7 (1.0-2.2); BILIRUBIN,TOTAL 0.7 mg/dL (0.2-1.0); CALCIUM 9.6 mg/dL (8.5-10.3); POTASSIUM 3.9 mmol/L (3.5-5.0); TOTAL PROTEIN 7.2 g/dL (6.7-8.2)
[2022-06-28 13:45] LABS: AMORPHOUS SEDIMENT,UR Marked /LPF; BACTERIA,URINE None Seen /HPF (None Seen); CLARITY,URINE SL. CLOUDY (CLEAR); MUCUS,URINE Few Strands; RBC,URINE None Seen /HPF (0-5); SQUAMOUS EPITHELIAL CELL,UR NONE SEEN (<= Few); WBC,URINE 0-3 /HPF (0-5)
== END 2022-06-28 13:16 | disposition home or self-care (01) ==
LOC: LAB 13:15
PROVIDERS: ATTEND Nurse Practitioner Family
DX: R10.12 Left upper quadrant pain (principal)
CPT/HCPCS: 36415; 80053; 81001; 82150; 83690; 85025; 87086

== ENCOUNTER 2022-07-03 19:56 | Outpatient (CLI) | payer MEDICARE, OTHER ==
--- NOTE | 2022-07-04 17:44 | Ultrasound Report ---
PROCEDURE: Abdomen Complete INDICATIONS: ABD PAIN TECHNIQUE: Real-time scanning was performed of the abdominal and retroperitoneal organs, with image documentatio n. COMPARISON: None. FINDINGS: Liver: Liver is normal in size and homogeneous in echotexture. Gallbladder: No stones. Wall thickness is normal measuring 2.2 mm. Biliary ducts: Intrahepatic bile ducts are non-dilated. Extrahepatic bile duct caliber measures 5.9 mm. Normal is 6-7 mm or less in diameter, or 10 mm or less post-cholecystectomy. Pancreas: Visualized portions of the pancreas are sonographically normal. Spleen: Spleen is normal in size and homogeneous in echotexture. Kidneys: Kidneys are normal in size and echotexture. Right kidney measures 10.9 cm long; left kidne y measures 11 cm long. No hydronephrosis or nephrolithiasis. No solid masses. Aorta: Visualized aorta is normal in caliber at less than 3 cm. Iliacs: Proximal common iliac arteries are normal in caliber at less than 2.5 cm. IVC: Intrahepatic inferior vena cava is patent. Miscellaneous: No free abdominal fluid. IMPRESSION: Unremarkable exam. Reviewed by: Margot Rae MD on 07/04/2022 5:42 PM PST Approved by: Margot Rae MD on 07/04/2022 5:42 PM PST Station ID: [id number]
== END 2022-07-03 19:57 | disposition home or self-care (01) ==
LOC: DI 19:56
PROVIDERS: ATTEND Nurse Practitioner Family
DX: R10.12 Left upper quadrant pain (principal)

== ENCOUNTER 2022-07-25 16:18 | Outpatient (CLI) | payer MEDICARE, OTHER ==
[2022-07-25 16:47] LABS: BASOPHILS # (AUTO) 0.1 10^3/uL (0.0-0.1); BASOPHILS % (AUTO) 0.8 %; EOSINOPHILS # (AUTO) 0.3 10^3/uL (0.0-0.7); LYMPHOCYTES # (AUTO) 2.3 10^3/uL (1.5-3.5); LYMPHOCYTES % (AUTO) 36.5 %; MEAN CORPUSCULAR HEMOGLOBIN 29.7 pg (27.0-31.0); MEAN CORPUSCULAR HGB CONC 31.7 g/dL (32.0-36.0); MEAN CORPUSCULAR VOLUME 93.6 fL (81.0-99.0); MEAN PLATELET VOLUME 10.6 fL (7.9-10.8); MONOCYTES # (AUTO) 0.4 10^3/uL (0.0-1.0); NEUTROPHILS # (AUTO) 3.2 10^3/uL (1.5-6.6); NEUTROPHILS % (AUTO) 51.5 %; PLT - PLATELET COUNT 173 10^3/uL (130-450); RED BLOOD COUNT 4.38 10^6/uL (4.20-5.40); RED CELL DISTRIBUTION WIDTH 13.2 % (12.0-15.0); WHITE BLOOD COUNT 6.3 x10^3/uL (4.8-10.8)
[2022-07-25 17:15] LABS: ALBUMIN 4.7 g/dL (3.2-5.5); BILIRUBIN,TOTAL 0.7 mg/dL (0.2-1.0); CREATININE 0.9 mg/dL (0.4-1.0); POTASSIUM 4.1 mmol/L (3.5-5.0)
== END 2022-07-25 16:19 | disposition home or self-care (01) ==
LOC: LAB 16:18
PROVIDERS: ATTEND Nurse Practitioner Family
DX: R10.12 Left upper quadrant pain (principal); R74.8 Abnormal levels of other serum enzymes
CPT/HCPCS: 36415; 80053; 81001; 82150; 83690; 85025; 87086

== ENCOUNTER 2022-07-26 06:30 | Outpatient (CLI) | payer MEDICARE, OTHER ==
[2022-07-26 09:40] LABS: BILIRUBIN,URINE NEGATIVE (NEGATIVE); GLUCOSE, URINE (UA) NEGATIVE (NEGATIVE); KETONES,URINE (UA) NEGATIVE (NEGATIVE); LEUKOCYTE ESTERASE, URINE NEGATIVE (NEGATIVE); NITRITE,URINE NEGATIVE (NEGATIVE); OCCULT BLOOD,URINE NEGATIVE (NEGATIVE); PH,URINE 7.5 PH (5.0-7.5); PROTEIN,URINE NEGATIVE (NEGATIVE); UROBILINOGEN,URINE 0.2 (NORMAL) E.U./dL (NORMAL)
[2022-07-26 09:41] LABS: CLARITY,URINE SL. CLOUDY (CLEAR)
[2022-07-26 09:48] LABS: AMORPHOUS SEDIMENT,UR Moderate /LPF; BACTERIA,URINE Few /HPF (None Seen); RBC,URINE None Seen /HPF (0-5); SQUAMOUS EPITHELIAL CELL,UR RARE Squamous (<= Few); WBC,URINE 0-3 /HPF (0-5)
== END 2022-07-26 23:59 | disposition home or self-care (01) ==
LOC: LAB 06:30
PROVIDERS: ATTEND Nurse Practitioner Family
DX: R10.12 Left upper quadrant pain (principal)
CPT/HCPCS: 81001; 87086

== ENCOUNTER 2022-07-26 09:27 | Outpatient (CLI) | payer MEDICARE, OTHER ==
--- NOTE | 2022-07-29 10:13 | Mammography Report ---
BILATERAL DIGITAL SCREENING MAMMOGRAM 3D/2D: 07/26/2022 CLINICAL: Routine screening. Comparison is made to exams dated: 02/05/2021 mammogram, 11/05/2018 mammogram, 10/30/2017 mammogram, mammogram, 10/19/2015 mammogram, and 10/10/2015 mammogram - [facility]. There are scattered areas of fibroglandular density in both breasts (category b / 25%-50% glandular t issue). There are benign vascular calcifications in both breasts. No significant masses, calcifications, or other findings are seen in either breast. There has been no significant interval change. IMPRESSION: BENIGN There is no mammographic evidence of malignancy. A 1 year screening mammogram is recommended. Based on the Tyrer Cuzick model (a risk assessment model) the patients lifetime risk is 3.7% and her 10 year risk is 2.7%. According to the ACR, ACS, and NCCN guidelines, an annual breast MRI exam ambrose g with mammogram is recommended if the patients lifetime risk is 20% or greater. This exam was interpreted at Station ID: [id number]. NOTE: For mammograms, a report in lay terms will be sent to the patient. Approximately 15% of breast malignancies will not be visualized mammographically. In the management of a palpable breast mass, a negative mammogram must not discourage biopsy of a clinically suspicious lesion. Electronically Signed By: Johnnie Patel M.D. [email or web address]:07/26/2022 12:27:54 ACR BI-RADS Category 2: Benign Finding(s) 3342F PARENCHYMAL PATTERN: (A) - The breast(s) demonstrate(s) scattered fibroglandular densities. BI-RADS CATEGORY: (2) - 2 RECOMMENDATION: (ANNUAL) - Recommend routine annual screening mammography. [id number] 1 year screening LATERALITY: (B)
== END 2022-07-26 09:28 | disposition home or self-care (01) ==
LOC: DI 09:27
DX: Z12.31 Encounter for screening mammogram for malignant neoplasm of breast (principal)

== ENCOUNTER 2022-08-08 12:17 | Outpatient (CLI) | payer MEDICARE, OTHER ==
[2022-08-08] MEDS ORDERED: DIATRIZOATE MEGLU/DIATRIZO SOD 30 ML BOTTLE PO ONE (12:24)
--- NOTE | 2022-08-08 16:51 | CT Report ---
PROCEDURE: ABDOMEN/PELVIS WO INDICATIONS: LUQ ABD PAIN TECHNIQUE: Noncontrast 5 mm thick sections acquired from the diaphragms to the symphysis. 5 mm coronal and sagi ttal reformats were then performed. For radiation dose reduction, the following was used: automated exposure control, adjustment of mA and/or kV according to patient size. COMPARISON: None. FINDINGS: Image quality: Excellent. ABDOMEN: Lung bases: Lung bases are clear. Heart size is normal. Solid organs: Liver and spleen are normal in size. Gallbladder is seen anterior to the liver. Panc reas is normal in contours. No adrenal nodules. Kidneys are normal in size, without hydronephrosis or nephrolithiasis. Peritoneum and bowel: Unenhanced bowel loops demonstrate normal wall thickness and caliber. No free fluid or air. The large bowel has increased stool consistent with constipation. Nodes and vessels: No retroperitoneal or mesenteric adenopathy by size criteria. Aorta and inferior vena cava are normal in caliber. Miscellaneous: No ventral hernias. PELVIS: Genitourinary: Bladder wall thickness is normal. Miscellaneous: No inguinal hernias or adenopathy. Bones: No suspicious bony lesions. No vertebral body compression fractures. Postoperative changes o f total left hip replacement. Multilevel degenerative changes of the lumbar spine with facet arthropa thy at L4-5 and L5-S1. IMPRESSION: 1. Increased stool in the colon consistent with constipation. 2. Constipation. Reviewed by: El Guillory on 08/08/2022 4:50 PM PST Approved by: El Guillory on 08/08/2022 4:50 PM PST Station ID: [id number]
== END 2022-08-08 12:18 | disposition home or self-care (01) ==
LOC: DI 12:17
PROVIDERS: ATTEND Family Medicine
DX: Z00.00 Encounter for general adult medical examination without abnormal findings (principal); R10.12 Left upper quadrant pain; R74.8 Abnormal levels of other serum enzymes; K59.00 Constipation, unspecified
CPT/HCPCS: 74176; Q9963

== ENCOUNTER 2022-12-20 13:13 | Outpatient (CLI) | payer MEDICARE, OTHER ==
[2022-12-20 13:32] LABS: BASOPHILS # (AUTO) 0.1 10^3/uL (0.0-0.1); EOSINOPHILS # (AUTO) 0.2 10^3/uL (0.0-0.7); EOSINOPHILS % (AUTO) 3.7 %; HCT - HEMATOCRIT 38.2 % (37.0-47.0); HGB - HEMOGLOBIN 12.6 g/dL (12.0-16.0); LYMPHOCYTES # (AUTO) 1.5 10^3/uL (1.5-3.5); MEAN CORPUSCULAR HEMOGLOBIN 30.2 pg (27.0-31.0); MEAN CORPUSCULAR VOLUME 91.6 fL (81.0-99.0); MEAN PLATELET VOLUME 9.8 fL (7.9-10.8); MONOCYTES # (AUTO) 0.3 10^3/uL (0.0-1.0); MONOCYTES % (AUTO) 6.6 %; NEUTROPHILS # (AUTO) 3.1 10^3/uL (1.5-6.6); NEUTROPHILS % (AUTO) 59.5 %; PLT - PLATELET COUNT 186 10^3/uL (130-450); RED BLOOD COUNT 4.17 10^6/uL (4.20-5.40); RED CELL DISTRIBUTION WIDTH 12.9 % (12.0-15.0); WHITE BLOOD COUNT 5.1 x10^3/uL (4.8-10.8)
[2022-12-20 13:55] LABS: ALBUMIN 4.4 g/dL (3.2-5.5); ALBUMIN/GLOBULIN RATIO 1.8 (1.0-2.2); ALKALINE PHOSPHATASE 60 IU/L (42-121); ALT ALANINE AMINOTRANSFERASE 21 IU/L (10-60); AST ASPARTATE AMINOTRANSFERASE 34 IU/L (10-42); BILIRUBIN,TOTAL 0.5 mg/dL (0.2-1.0); BUN - BLOOD UREA NITROGEN 18 mg/dL (6-20); CALCIUM 9.5 mg/dL (8.5-10.3); CARBON DIOXIDE - CO2 30 mmol/L (21-32); CHLORIDE 101 mmol/L (101-111); CHOL/HDL RATIO 2.4 (<4.4); CHOLESTEROL 180 mg/dL; CREATININE 0.8 mg/dL (0.4-1.0); GFR - MDRD 70 (>89); GLUCOSE 95 mg/dL (70-100); HDL CHOLESTEROL 76 mg/dL; LDL CHOLESTEROL,CALCULATED 96 mg/dL; LDL/HDL RATIO 1.3 (<4.4); POTASSIUM 3.8 mmol/L (3.5-5.0); SODIUM 139 mmol/L (135-145); TOTAL PROTEIN 6.9 g/dL (6.7-8.2); TRIGLYCERIDES 42 mg/dL; VLDL CHOLESTEROL 8 mg/dL
[2022-12-20 14:06] LABS: THYROID STIMULATING HORMONE 1.1 uIU/mL (0.34-5.60)
== END 2022-12-20 13:14 | disposition home or self-care (01) ==
LOC: LAB 13:13
PROVIDERS: ATTEND Nurse Practitioner Family
DX: Z00.00 Encounter for general adult medical examination without abnormal findings (principal); Z78.0 Asymptomatic menopausal state
CPT/HCPCS: 36415; 80053; 80061; 83721; 84443; 85025

== ENCOUNTER 2023-02-03 09:18 | Outpatient (CLI) | payer MEDICARE, OTHER ==
--- NOTE | 2023-02-03 12:42 | DEXA Report ---
PROCEDURE: Dexa Spine and/or Hip INDICATIONS: POST MENOPAUSAL TECHNIQUE: Dual energy x-ray absorptiometry (DXA) was performed on a [employer] System. Regions measur ed are the AP Spine, femoral neck, and if needed forearm. COMPARISON: DEXA 12/31/2018 FINDINGS: Lumbar Spine: Bone Mineral Density 1.546 g/cm/cm,T score 3.0. There has been no statistically significant change i n bone mineral density since the prior study. Left Femoral Neck: Bone Mineral Density 0.920 g/cm/cm, T score -0.8. Left Hip: Bone Mineral Density 0.929 g/cm/cm,T score -0.6. Since the most recent prior study, there has been a statistically significant decrease in bone mineral density by 3.6 percent. (T score greater or equal to -1.0: NORMAL) (T score from -1.1 to -2.4: OSTEOPENIA) (T score less than or equal to -2.5 to: OSTEOPOROSIS) Impression: By WHO criteria, this patient has normal bone density. No statistical interval change in bone minteral density of the lumbar spine. Interval statistical dec rease in bone minteral density of the hip. Patients with diagnosis of osteoporosis or osteopenia should have regular bone mineral density assess ment. For those eligible for Medicare, routine testing is allowed once every 2 years. Testing frequ ency can be increased for patients who have rapidly progressing disease or for those who are receivin g medical therapy to restore bone mass. Reviewed by: Morro Beal MD on 02/03/2023 12:41 PM PDT Approved by: Morro Beal MD on 02/03/2023 12:41 PM PDT Station ID: [id number]
== END 2023-02-03 09:19 | disposition home or self-care (01) ==
LOC: DI 09:18
PROVIDERS: ATTEND Nurse Practitioner Family
DX: Z78.0 Asymptomatic menopausal state (principal)

== ENCOUNTER 2023-10-01 13:15 | Outpatient (CLI) | payer MEDICARE, OTHER ==
--- NOTE | 2023-10-01 15:58 | XRAY Report ---
PROCEDURE: Chest 2V INDICATIONS: DYSPNEA ON EXERTION TECHNIQUE: 2 views of the chest were acquired. COMPARISON: CT 10/30/2020. FINDINGS: Surgical changes and devices: None. Lungs and pleura: No pleural effusions or pneumothorax. Lungs are clear. Mediastinum: Mediastinal contours appear normal. Heart size is normal. Bones and chest wall: No suspicious bony lesions. Overlying soft tissues appear unremarkable. IMPRESSION: No acute cardiopulmonary process. Reviewed by: Festus Baldwin MD on 10/01/2023 3:56 PM PDT Approved by: Festus Baldwin MD on 10/01/2023 3:56 PM PDT Station ID: [id number]
== END 2023-10-01 13:16 | disposition home or self-care (01) ==
LOC: DI 13:15
PROVIDERS: ATTEND Nurse Practitioner Family
DX: R06.09 Other forms of dyspnea (principal)

== ENCOUNTER 2023-12-05 09:08 | Outpatient (CLI) | payer MEDICARE, OTHER | END 2023-12-05 09:09 | disposition home or self-care (01) | LOC: DI 09:08 | PROVIDERS: ATTEND Nurse Practitioner Family | DX: R06.09 Other forms of dyspnea (principal) | CPT/HCPCS: 93307 ==